=== PATIENT | female | born 1935 | race Caucasian/White ===

== ENCOUNTER 2018-03-27 16:02 | Emergency (ER) | payer MEDICARE, OTHER ==
[~2018-03-27] VITALS: Ht 160 cm; Wt 63.6 kg
[2018-03-27 16:04] VITALS: Ht 160 cm; Wt 63.6 kg
[2018-03-27] MEDS ORDERED: SYNTHROID75 MCG PO (16:07)
[2018-03-27] MEDS ORDERED: BAYER CHEWABLE81 MG PO (16:07)
[2018-03-27] MEDS ORDERED: CELEXA10 MG PO (16:07)
[2018-03-27 18:20] VITALS: BP 120/76
== END 2018-03-27 18:21 | disposition home or self-care (01) ==
LOC: D.ER 16:02
DX: R07.81 Pleurodynia (principal); G30.9 Alzheimer's disease, unspecified; F02.80 Dementia in other diseases classified elsewhere, unspecified severity, without behavioral disturbance, psychotic disturbance, mood disturbance, and anxiety; E07.9 Disorder of thyroid, unspecified; V43.62XA Car passenger injured in collision with other type car in traffic accident, initial encounter; Y93.89 Activity, other specified; Y92.410 Unspecified street and highway as the place of occurrence of the external cause